=== PATIENT | male | born 1980 | race Caucasian/White ===

== ENCOUNTER 2018-01-01 23:07 | Emergency (ER) | payer SELFPAY ==
[2018-01-01 23:08] VITALS: BP 143/77; PULSE 110; RESP 16; TEMP 37.3; O2SAT 96; BMI 33.7
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
[2018-01-02 00:05] LABS: Bacteria 0 SEEN /hpf (None Seen); Mucous, Urine 0 SEEN /hpf (<or=2+); Red Blood Cells-Urine 0 SEEN /hpf (0-5); Squamous Epithelial Cells - UA 0 SEEN /hpf (0-5)
--- NOTE | 2018-01-02 00:11 | ED.DEP ---
ED Disposition - Plan for ED Patient: Disposition: Home or Assisted Living Chief Complaint: Fever Instructions: ED Fever Unconf Cause Referrals: Julieta Reid MD [Primary Care Provider] -
[2018-01-02 00:22] LABS: Color, Urine Yellow (Yellow); Glucose, Dipstick NEGATIVE (Normal); Ketone-Dipstick Negative (Negative); Leukocyte Esterase-Dipstick Negative /ul (Negative); Nitrite-Dipstick Negative (Negative); Occult Blood-Urine Negative /ul (Negative); Protein-Dipstick Negative (Negative); Urine Bilirubin Dipstick Negative (Negative); Urine Clarity Clear (Clear); Urine Urobilinogen Normal (Normal)
[2018-01-02 00:23] LABS: White Blood Cells 0 SEEN /hpf (0-5)
[2018-01-02 01:28] VITALS: BP 151/87; PULSE 91; RESP 16; O2SAT 98
== END 2018-01-02 01:29 | disposition home or self-care (01) ==
PROVIDERS: Emergency Provider Emergency Medicine; Family Provider Internal Medicine; PCP Internal Medicine
DX: R50.9 Fever, unspecified (principal); S30.1XXD Contusion of abdominal wall, subsequent encounter; S01.81XD Laceration without foreign body of other part of head, subsequent encounter; Z79.899 Other long term (current) drug therapy; V89.2XXD Person injured in unspecified motor-vehicle accident, traffic, subsequent encounter
CPT/HCPCS: 71046; 81001; 99282

== ENCOUNTER 2018-03-23 03:09 | Emergency (ER) | payer SELFPAY ==
[2018-03-23 03:10] VITALS: BP 141/104; PULSE 71; RESP 16; TEMP 37; O2SAT 99; BMI 32.1
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
--- NOTE | 2018-03-23 04:01 | ED.VIS.GEN ---
History of Present Illness Chief Complaint: Back Informant: Patient Onset: Hours - 2.5 Context: Sudden Onset - woke him up from sleep Timing: Continuous Quality: colicky aching Location: left flank Current Severity: Severe Maximum Severity: Severe Worsened by: moving around makes it a little worse. no changes/trigger w/ eating. Relieved by: nothing Associated Symptoms: none. no urinary sx, n/v, fevers Narrative: Has been on PPI for GERD, recently switched from that to Zantac because of some abnormal kidney tests. This pain woke him up from sleep. He had a similar pain several days ago that was short-lived and not as severe. Prior similar symptoms: No - Past Medical History (1) GERD (gastroesophageal reflux disease) Status: Chronic Past Medical History - Allergies and Home Meds Allergies/Adverse Reactions: Allergies No Known Allergies Allergy (Verified 03/23/18 03:34) Primary Care Physician: Julieta Reid MD [Primary Care Provider] - Surgical History: cholecystectomy Smoking Status: Never smoker Drugs: None Review of Systems General: Denies: Chills, Fever, Sweats Eyes: Denies: Visual changes - bilaterally, Diplopia ENT: Denies: Rhinorrhea, Sore throat Cardiovascular: Denies: Chest pain, Palpitations Respiratory: Denies: Dyspnea, Cough, Dyspnea on exertion Gastrointestinal: Reports: Abdominal pain - left flank. radiates into scrotum occasionally, Diarrhea. Denies: Nausea, Vomiting, Melena, Hematochezia Genitourinary: Denies: Dysuria, Hematuria, Frequency Musculoskeletal: Reports: Back pain - left low. Denies: Neck pain, Extremity Pain Skin: Denies: Rash Neurological: Denies: Headache, Weakness, Parasthesia, Numbness Physical Exam Vital Signs/Narrative: Vital Signs Temp Pulse Resp BP Pulse Ox 03/23/18 03:10 98.6 F 71 16 141/104 H 99 Inital Vital Signs reviewed: Yes General: Well nourished, Well developed, - - uncomfortable; nad Head: Normocephalic, Atraumatic Eyes: Perrl, EOMI ENT: Moist mucous membranes, No rhinorrhea Neck: Supple, Nontender Cardiovascular: Regular rate, Regular rhythm, No murmurs Respiratory: No distress, CTA bilaterally, Chest nontender Abdomen: Soft, Nondistended, Normal bowel sounds, Tender - mild LLQ. Negative for: Guarding, Rebound tenderness Back: Nontender, Normal Inspection, CVA tenderness - left Extremities: Nontender, No edema Skin: Normal color, No rash Neurological: Alert, Oriented x3, Cranial nerves II-XII grossly intact, Normal Strength, Normal Sensation Psychological: - - anxious Diagnostic/Tx/Re-eval Impressions Abdomen/Pelvis CT 03/23/18 04:00 IMPRESSION: Left UPJ stone with hydronephrosis and perinephric fatty stranding. Mild ventral abdominal wall stranding inferior to the umbilicus. Clinical correlation is recommended. Nonspecific small area of increased attenuation within the right hepatic lobe. This could represent a focal area of fatty sparing. Ultrasound could be performed on a nonemergent basis. Evaluation is limited by the lack of IV contrast. Hepatic steatosis. Other findings as discussed above. Electronically Signed: Mustapha Anabella, at 5:18 EDT Tel , Service support , 03/23/18 04:00 Abdomen/Pelvis without Cont [CT] Stat Laboratory Results 03/23/18 03/23/18 03/23/18 Range/Units 04:05 04:05 04:20 WBC 7.5 (4.4-11.0) K/mm3 RBC 5.29 (4.6-6.2) M/mm3 Hgb 16.6 H (13.0-16.5) g/dl Hct 47.4 (40-54) % MCV 89.6 (80-94) fL MCH 31.4 (27.0-32.0) pg MCHC 35.0 (32-36) g/gl RDW 12.4 (11.6-14.6) % RDW Differential 40.4 (35.1-43.9) fl Plt Count 242 (150-450) K/mm3 MPV 9.5 (6.2-12.0) fl Immature Gran % (Auto) 0.100 (0.0-0.9) % Neut % (Auto) 70.4 H (47-70) % Lymph % (Auto) 21.6 (19-41) % [place] % (Auto) 6.7 (0-10) % Eos % (Auto) 0.7 (0-5) % Baso % (Auto) 0.5 (0-1) % Absolute Neuts (auto) 5.2 (2.0-7.7) X10^3/uL Absolute Lymphs (auto) 1.61 (0.83-4.51) X10^3/ul Total Counted Not Reportable Sodium 143 (136-145) mmol/L Potassium 3.2 L (3.5-5.1) mmol/L Chloride 106 (98-107) mmol/L Carbon Dioxide 26.0 (21.0-32.0) mmol/L Anion Gap 11 (5-15) BUN 18 (7-18) mg/dL Creatinine 1.58 H (0.70-1.30) mg/dL Estim Creat Clear Calc 64.81 ml/min Est GFR (MDRD) Af Amer 63 (>60) mL/min Est GFR (MDRD) Non-Af 52 L (>60) mL/min BUN/Creatinine Ratio 11.4 (10-20) RATIO Glucose 114 H (74-106) mg/dL Calcium 9.3 (8.5-10.1) mg/dL Urine Color Yellow (Yellow) Urine Clarity Sl. Cloudy (Clear) Urine pH 9.0 (5.0 - 8.0) Ur Specific [place] 1.015 (1.002-1.030) Urine Protein 15 H (Negative) mg/dl Urine Glucose (UA) Normal (Normal) mg/dl Urine Ketones Negative (Negative) mg/dl Urine Occult Blood 25 H (Negative) /ul Urine Nitrite Negative (Negative) Urine Bilirubin Negative (Negative) mg/dL Urine Urobilinogen Normal (Normal) mg/dl Ur Leukocyte Esterase Negative (Negative) /ul Urine RBC 0 SEEN (0-5) /hpf Urine WBC 0-5 SEEN (0-5) /hpf Ur Squamous Epith Cells 0-5 SEEN (0-5) /hpf Amorphous Sediment 1+ Urine Bacteria RARE (None Seen) /hpf Urine Mucus 1+ (<or=2+) /hpf - Medical Decision Making Patient symptoms were well controlled with Toradol, morphine, Zofran, he did develop nausea after my initial evaluation. On reevaluation is very comfortable and conversive. CT shows a 5 mm proximal ureteral stone. Urinalysis shows trace amount of blood but no signs of any infection or pyuria. His labs are otherwise unremarkable except for a creatinine of 1.58. He was 1.27 around 3 years ago, he was told that his doctor had an outpatient measurement in the 1.2 range recently, hence his medication change. At 5 mm, with well-controlled symptoms, expectant management is indicated, along with close outpatient urologic follow-up, and following up with his PCP to trend his creatinine. He does not need to be admitted at this time. He was given appropriate follow-up information for urology and advised to make an appointment today. Prescriptions for Percocet and Zofran given, along with urine strainers and instructions for use, and we discussed reasons to return. He and his are comfortable with this plan. ED Disposition - Plan for ED Patient: Disposition: Home or Assisted Living Chief Complaint: Back Diagnosis: Urolithiasis, Renal colic on left side, Acute renal insufficiency Instructions: ED Stone Renal W Colic, ED Strainer Urine Prescriptions: Oxycodone HCl/Acetaminophen [Percocet 5/325] 1 tablet PO Q6H PRN PRN 5 Days #20 tablet PRN Reason: Pain Ondansetron [Zofran Odt] 8 mg PO Q8H PRN PRN #15 tab PRN Reason: Nausea/Vomiting Referrals: Julieta Reid MD [Primary Care Provider] - Leonides Qiu MD [STAFF PHYSICIAN] - 1-2 Weeks (Call today for appointment) Additional Instructions: Your creatinine today is 1.58. Follow up with your doctor for a recheck.
[2018-03-23] MEDS: Morphine 4 MG/ML Syringe IV (04:12)
[2018-03-23] MEDS: Ketorolac 30 MG/ML Syringe IV (04:12)
[2018-03-23] MEDS: Ondansetron 4 MG/2 ML Vial IV (04:17)
[2018-03-23 04:28] LABS: Absolute Lymphocyte Count 1.61 X10^3/ul (0.83-4.51); Absolute Neutrophil Count 5.2 X10^3/uL (2.0-7.7); Basophil# 0.04 X10^3/uL; Basophil% 0.5 % (0-1); Eosinophil# 0.05 X10^3/uL; Eosinophils% 0.7 % (0-5); Hematocrit 47.4 % (40-54); Hemoglobin 16.6 g/dl (13.0-16.5); Lymphocyte # 1.61 X10^3/ul (4.0); Lymphocyte % 21.6 % (19-41); Mean Corpuscular Hgb 31.4 pg (27.0-32.0); Mean Corpuscular Volume 89.6 fL (80-94); Mean Platelet Vol. 9.5 fl (6.2-12.0); Monocyte% 6.7 % (0-10); Neutrophil # 5.24 X10^3/uL (2.7-7.7); Neutrophil % 70.4 % (47-70); Platelet Count 242 K/mm3 (150-450); RBC Distribution Width CV 12.4 % (11.6-14.6); RBC Distribution Width SD 40.4 fl (35.1-43.9); Red Blood Count 5.29 M/mm3 (4.6-6.2); White Blood Count 7.5 K/mm3 (4.4-11.0)
[2018-03-23 04:29] LABS: POSITIVE COUNT NO; POSITIVE DIFFERENTIAL NO; POSITIVE MORPHOLOGY NO
[2018-03-23 04:35] LABS: Red Blood Cells-Urine 0 SEEN /hpf (0-5)
[2018-03-23 04:38] LABS: Color, Urine Yellow (Yellow); Glucose, Dipstick Normal (Normal); Ketone-Dipstick Negative (Negative); Leukocyte Esterase-Dipstick Negative /ul (Negative); Nitrite-Dipstick Negative (Negative); Occult Blood-Urine 25 /ul (Negative); Protein-Dipstick 15 mg/dl (Negative); Specific Gravity, Urine 1.015 (1.002-1.030); Urine Bilirubin Dipstick Negative (Negative); Urine Clarity Sl. Cloudy (Clear); Urine Urobilinogen Normal (Normal)
[2018-03-23 04:44] LABS: Anion Gap 11 (5-15); BUN 18 mg/dL (7-18); BUN/Creat Ratio 11.4 RATIO (10-20); Calcium,Total 9.3 mg/dL (8.5-10.1); Chloride 106 mmol/L (98-107); Creatinine, Serum 1.58 mg/dL (0.70-1.30); EST Glomerular Filtration Rate 52 mL/min (>60); Est Glom Filt Rate - Afr Amer 63 mL/min (>60); Estimated Creatinine Clearance 64.81 ml/min; Glucose 114 mg/dL (74-106); Potassium 3.2 mmol/L (3.5-5.1); Sodium Level 143 mmol/L (136-145)
[2018-03-23 04:47] LABS: Amorphous Sediment 1+; Bacteria RARE /hpf (None Seen); Mucous, Urine 1+ /hpf (<or=2+)
[2018-03-23 04:48] LABS: Squamous Epithelial Cells - UA 0-5 SEEN /hpf (0-5); White Blood Cells 0-5 SEEN /hpf (0-5)
[2018-03-23 05:12] VITALS: BP 141/77; PULSE 81; RESP 17; O2SAT 96
[2018-03-23 05:47] VITALS: BP 134/71; PULSE 71; RESP 18; O2SAT 99
[2018-03-23] MEDS: oxyCODONE 5 MG Tablet PO (06:02)
== END 2018-03-23 05:48 | disposition home or self-care (01) ==
PROVIDERS: Emergency Provider Emergency Medicine; Family Provider Internal Medicine; PCP Internal Medicine
DX: N20.1 Calculus of ureter (principal); N23 Unspecified renal colic; N28.9 Disorder of kidney and ureter, unspecified; K21.9 Gastro-esophageal reflux disease without esophagitis; Z79.899 Other long term (current) drug therapy
CPT/HCPCS: 74176; 80048; 81001; 85025; 96374; 96375; 99283; A4216; J2405

== ENCOUNTER 2018-04-06 20:40 | Emergency (ER) | payer SELFPAY ==
[2018-04-06 20:41] VITALS: BP 143/90; PULSE 83; RESP 18; TEMP 37.1; O2SAT 100; BMI 32.3
--- NOTE | 2018-04-06 20:52 | ED.VISSUMM ---
- ER Visit Summary Date of Service: 04/06/18 Chief Complaint: Left flank pain History of Present Illness: The patient is a 37 M who presents with left leg pain. He states it started today. He had a lithotripsy done by Dr. Matt at [facility] today. He states he went home and felt good but after a couple of hours she started having pain in the left flank. He has noticed some mild hematuria. He has mild nausea without vomiting. He took oxycodone before he came in but it was not helping. Physical Examination: Vital signs reviewed. HEENT exam unremarkable. Heart is regular rate and rhythm without murmurs. Lungs are clear to auscultation. Abdomen is soft with mild tenderness on the left side of the abdomen and left flank. Extremities reveal no edema. Skin exam normal. Neurologic exam normal. Test Results: KUB reveals a possible stone in the left UVJ Emergency Department Course and Treatment: Patient was given normal saline and Toradol. He still had pain so he was given morphine. She had symptomatic relief with this. He has oxycodone that he can take for pain at home. He will need to call his urologist for a follow-up appointment. At this point with his pain better I do not feel he needs to be admitted to the hospital. Treatment Plan: [] Disposition: Discharge Impression: Ureterolithiasis Flank pain status post lithotripsy today This note was generated with [employer] dictation software. It may contain incorrect words, spelling, and punctuation that were not noted in review of the chart prior to signing ED Disposition - Plan for ED Patient: Chief Complaint: Flank Pain Referrals: Julieta Reid MD [Primary Care Provider] -
[2018-04-06] MEDS: Ketorolac 30 MG/ML Syringe IV (21:04)
[2018-04-06] MEDS: 0.9% Normal Saline 1,000 ML 999 ML IV (21:04)
--- NOTE | 2018-04-06 21:15 | RAD_ITS ---
STUDY: X-RAY - ABDOMEN/PELVIS REASON FOR EXAM: Male, 37 years old. Left abdominal pain after lithotripsy TECHNIQUE: Supine views of the abdomen and pelvis were obtained. COMPARISON: CT abdomen and pelvis dated March 23, 2018 FINDINGS: The lung bases were not imaged. There is an unremarkable bowel gas pattern. There is no demonstrated free abdominal air. There is no demonstrated abnormality of the major organs. A faint calcification is seen in the left abdomen at the level of L3. A phlebolith is again seen in the left lower pelvis. The soft tissues are unremarkable. The osseous structures are unremarkable. RAD/Abdomen Single View IMPRESSION: A faint calcification is again seen on the left side at the level of L3, possible small residual stone in the proximal left ureter or UPJ. No other stones are evident along the course of the left ureter. A round phlebolith is stable in the left lower pelvis. Electronically Signed: Aliya Ortiz MD at 21:53 EDT Tel Direct: [phone], Service support ,
[2018-04-06] MEDS: morphine 8 MG/ML Syringe IV (22:02)
--- NOTE | 2018-04-06 22:39 | ED.DEP ---
ED Disposition - Plan for ED Patient: Disposition: Home or Assisted Living Chief Complaint: Flank Pain Instructions: ED Stone Renal W Colic Referrals: Julieta Reid MD [Primary Care Provider] -
[2018-04-06 23:02] VITALS: BP 145/91; PULSE 81; RESP 16; O2SAT 95
== END 2018-04-06 23:03 | disposition home or self-care (01) ==
PROVIDERS: Emergency Provider Emergency Medicine; Family Provider Internal Medicine; PCP Internal Medicine
DX: N20.1 Calculus of ureter (principal); R10.9 Unspecified abdominal pain; Z98.890 Other specified postprocedural states; Z87.442 Personal history of urinary calculi
CPT/HCPCS: 74018; 96361; 96374; 96375; 99283; J7030; A4216